=== PATIENT | female | born 1985 ===

== ENCOUNTER 2021-04-27 17:30 | Outpatient (REF) | payer MEDICAID, SELFPAY ==
[2021-04-27 21:56] LABS: HGB 13.4 g/dL (11.2-15.7); MCH 30.4 pg (27.0-33.0); MCHC 32.7 % (32.0-36.0); Platelet Count 237 10^3/uL (130-400); RBC 4.41 10^6/uL (3.93-5.22); RDW 12.2 % (11.7-14.6); RDW-SD 42.2 fL; WBC 5.73 10^3/uL (4.4-10.8)
[2021-04-27 22:31] LABS: TSH 0.54 uIU/mL (0.36-3.74)
[2021-05-02 14:50] LABS: IgA 203 mg/dL (85-499); Interpretation (See Note); Tissue Transglutaminase IgA 1.2 U/mL (<4.0)
== END 2021-04-27 17:31 | disposition home or self-care (01) ==
LOC: NCHCN 17:30
PROVIDERS: Visit Provider Registered Nurse
DX: K90.0 Celiac disease (principal); N93.9 Abnormal uterine and vaginal bleeding, unspecified
CPT/HCPCS: 82784; 83516; 85027; 84443